=== PATIENT | male | born 1995 ===

== ENCOUNTER 2017-05-28 17:03 | Emergency (ER) | payer SELFPAY ==
[~2017-05-28] VITALS: Ht 167.6 cm; Wt 70.2 kg
[2017-05-28 17:03] VITALS: O2SAT 99; Ht 167.6 cm; Wt 70.2 kg
[2017-05-28] MEDS ORDERED: SODIUM CHLORIDE 0.9% 1000ML 1,000 ML IV STA (17:35)
--- NOTE | 2017-05-28 17:41 | EMERGENCY ROOM VISIT NOTE ---
History Report prepared by Renny: Caesar Dong Under the Supervision of: Dr. Jerome Pike M.D. First contact with patient: 17:06 Chief Complaint: SYNCOPE Stated Complaint: SYNCOPE History of Present Illness The patient is a 21 year old male who presents to the Emergency Room with complaints of a resolved syncopal episode that occurred prior to arrival. The patient state that he was at [facility] and was completing a questionnaire. He reports that he experienced a 2-3 seconds syncopal episode. The patient notes that he felt lightheaded, diaphoretic, and nauseous before hand. He denies seizure like activity, chest pain, shortness of breath, palpitations, vomiting, diarrhea, fevers, chills, recent travel, abdominal pain, headache, numbness weakness, urinating himself, biting his tongue, melena, hematochezia, and missing meals. The patient states that he typically runs 4-8 miles, and he has still been able to complete this. He reports that he has never had this before, and he immediately came to. The patient notes that his sister has CPVT and has a pacemaker defibrillator. He states that it is anxiety induced and genetic. The patient reports that he was genetically tested, and it was negative. Source of History: patient Onset: prior to arrival Position: other (global) Quality: other (syncope) Timing: resolved Associated Symptoms: + diaphoresis, + nausea, No fevers, No chills, No headache, No chest pain, No SOB, No vomiting, No abdominal pain, No melena, No hematochezia, No diarrhea, No weakness, No numbness Note: Associated symptoms: lightheadedness He denies seizure like activity, palpitations, recent travel, urinating himself , biting his tongue, and missing meals Review of Systems See HPI for pertinent positives & negatives. A total of 10 systems reviewed and were otherwise negative. Past Medical & Surgical Medical Problems: (1) No Known Active Medical Problems Old medical records were reviewed. Nurse's notes were reviewed and I agree with. 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 Current/Historical Medications Scheduled Terbinafine Hcl (Terbinafine Hcl), 1 TAB PO DAILY Allergies Coded Allergies: No Known Allergies (Unverified , 9/15/17) Physical Exam Vital Signs Date Time Temp Pulse Resp B/P (MAP) Pulse Ox O2 Delivery O2 Flow Rate FiO2 05/28/17 21:23 37.3 97 14 125/71 99 05/28/17 21:11 97 14 99 05/28/17 21:01 125/71 05/28/17 20:41 95 16 99 05/28/17 20:31 133/62 05/28/17 20:11 90 16 99 05/28/17 20:01 131/71 05/28/17 19:59 128/72 05/28/17 19:57 81 16 128/72 100 Room Air 05/28/17 19:41 93 16 98 05/28/17 19:18 97 16 120/70 100 Room Air 05/28/17 19:11 85 15 05/28/17 19:01 120/70 05/28/17 18:47 89 12 137/75 100 Room Air 05/28/17 18:41 88 17 05/28/17 18:31 137/75 05/28/17 18:11 80 15 05/28/17 18:08 90 12 120/69 100 Room Air 05/28/17 18:01 120/69 05/28/17 17:41 81 16 05/28/17 17:36 137/79 05/28/17 17:33 91 12 100 Room Air 05/28/17 17:12 91 05/28/17 17:08 137/80 05/28/17 17:03 99 Room Air 05/28/17 17:03 37.3 84 16 133/83 99 Room Air 05/28/17 17:03 37.3 84 16 133/83 99 Room Air 73 132/74 79 137/80 Physical Exam General: Well developed well nourished in no acute distress, breathing comfortably on room air. Normal speech. Young male. HEENT: Normal cephalic atraumatic. Pupils are equal round and reactive to light. Sclerae are anicteric. Extraocular movements are intact. Oropharynx is pink with moist mucous membranes. No swelling of the mouth lips or tongue. Neck: Supple with a midline trachea. No meningeal signs or stiffness, no JVD or bruits. No Stridor. Chest: Clear to auscultation bilaterally. No wheezes or rhonchi. No increased work of breathing. Heart: regular rate and rhythm. Abdomen: Soft nontender, nondistended without rebound guarding or rigidity. Extremities: No cyanosis clubbing or edema. No calf tenderness or assymetry Spine/Back. Non tender to palpation. No CVA tenderness Skin: Good turgor without rashes. Neurologic exam: Cranial nerves two through 12 are intact. Motor and sensation are intact and symmetrical throughout. Normal finger to nose, no tremor. Medical Decision & Procedures Laboratory Results 05/28/17 17:27 Red Blood Count 4.82, Mean Corpuscular Volume 86.1, Mean Corpuscular Hemoglobin 29.3, Mean Corpuscular Hemoglobin Concent 34.0, Mean Platelet Volume 9.3, Neutrophils (%) (Auto) 55.8, Lymphocytes (%) (Auto) 32.5, Monocytes (%) (Auto) 7.8, Eosinophils (%) (Auto) 3.5, Basophils (%) (Auto) 0.2, Neutrophils # (Auto) 4.78, Lymphocytes # (Auto) 2.79, Monocytes # (Auto) 0.67, Eosinophils # (Auto) 0.30, Basophils # (Auto) 0.02 05/28/17 17:27 Test 05/28/17 17:27 05/28/17 19:59 05/28/17 20:18 White Blood Count 8.58 K/uL (4.8-10.8) Red Blood Count 4.82 M/uL (4.7-6.1) Hemoglobin 14.1 g/dL (14.0-18.0) Hematocrit 41.5 % (42-52) Mean Corpuscular Volume 86.1 fL (80-100) Mean Corpuscular Hemoglobin 29.3 pg (25-34) Mean Corpuscular Hemoglobin Concent 34.0 g/dl (32-36) Platelet Count 302 K/uL (130-400) Mean Platelet Volume 9.3 fL (7.4-10.4) Neutrophils (%) (Auto) 55.8 % Lymphocytes (%) (Auto) 32.5 % Monocytes (%) (Auto) 7.8 % Eosinophils (%) (Auto) 3.5 % Basophils (%) (Auto) 0.2 % Neutrophils # (Auto) 4.78 K/uL (1.4-6.5) Lymphocytes # (Auto) 2.79 K/uL (1.2-3.4) Monocytes # (Auto) 0.67 K/uL (0.11-0.59) Eosinophils # (Auto) 0.30 K/uL (0-0.5) Basophils # (Auto) 0.02 K/uL (0-0.2) RDW Standard Deviation 40.7 fL (36.4-46.3) RDW Coefficient of Variation 12.9 % (11.5-14.5) Immature Granulocyte % (Auto) 0.2 % Immature Granulocyte # (Auto) 0.02 K/uL (0.00-0.02) Anion Gap 5.0 mmol/L (3-11) Est Creatinine Clear Calc Drug Dose 88.6 ml/min Estimated GFR () 100.3 Estimated GFR (Non- 86.5 BUN/Creatinine Ratio 18.6 (10-20) Calcium Level 9.1 mg/dl (8.5-10.1) Total Bilirubin 0.4 mg/dl (0.2-1) Direct Bilirubin 0.1 mg/dl (0-0.2) Aspartate Amino Transf (AST/SGOT) 19 U/L (15-37) Alanine Aminotransferase (ALT/SGPT) 18 U/L (12-78) Alkaline Phosphatase 71 U/L (45-117) Total Creatine Kinase 305 U/L (39-308) Creatine Kinase MB 1.1 ng/ml (0.5-3.6) Creatine Kinase MB Ratio 0.4 (0-3.0) Total Protein 7.8 gm/dl (6.4-8.2) Albumin 4.1 gm/dl (3.4-5.0) Lipase 216 U/L (73-393) Thyroid Stimulating Hormone (TSH) 0.941 uIu/ml (0.300-4.500) Bedside Troponin I 0.040 ng/ml (0-0.045) Troponin I < 0.015 ng/ml (0-0.045) Laboratory studies as stated above per my review. Medications Administered Medications (Trade) Dose Ordered Sig/Liss Route Start Time Stop Time Status Last Admin Dose Admin Sodium Chloride 1,000 ml @ 999 mls/hr Q1H1M STAT IV 05/28/17 17:35 9/15/17 18:35 DC 05/28/17 17:49 999 MLS/HR ECG Indication: syncope Rate (beats per minute): 74 Rhythm: normal sinus Findings: no acute ischemic change, no ectopy, other (Normal intervals, no prolonged QT, no brugada findings) Comparison ECG Date: no prior available ED Course 1706: Past medical records reviewed. The patient was evaluated in room A03 by the medical student under my supervision, and a complete history and physical examination were performed. 172: Past medical records reviewed. The patient was evaluated by me, and a complete history and physical examination were performed. 173: Ordered Sodium Chloride 1000 ml @ 999 mls/hr IV 1809: I reevaluated the patient. He is asymptomatic and feeling better. I discussed current exam findings. 1927: The patient had his blood redrawn. 2008: The patient's second troponin reading was marked as an error. It is being ran again. 2105: Upon reevaluation, the patient is resting comfortably. I discussed the results and treatment plan with him. He verbalized agreement of the treatment plan. The patient was discharged home. Medical Decision Differentials include, but are not limited to; vasovagal syncope, arrhythmia, pulmonary disease, cardiac disease, anemia, electrolyte metabolic abnormality. This patient comes in as described above. He was placed in room A3. He is here for treatment and evaluation of a syncopal episode. He was waiting to give plasma and felt nauseated and had symptoms and then passed out . there is no trauma. He feels fine at present. He's had no chest pain, shortness breath , or pleurisy. He has a normal neurologic exam and there is nothing to suggest a seizure. It sounds classic for a vasovagal episode .EKG was unremarkable there is nothing to suggest arrhythmia or prolonged QT or Brugada syndrome. There is nothing to suggest WPW. A second EKG done in the ER also was unremarkable and shows no change when compared to EKG #1. Blood work was unremarkable. His [id number] troponin was borderline at 0.05 however when I checked in the lab, it was normal. I rechecked in the lab 2 hours or so later was also negative. I rechecked it in the ER and it was also decrease in a 0.04. There is nothing to suggest this is a cardiac ischemic event. His sister does have an arrhythmia that's congenital however he's been tested and workup for this and that he says he does not have the genetic arrhythmia. He feels good and would like to go home. He mary rest and drink plenty of fluids. Return if recurrence of symptoms, chest pain, shortness of breath, fever or chills, any new problems or concerns. He is happy the plan and discharged to home. Impression Primary Impression: Vasovagal syncope Scribe Attestation The scribe's documentation has been prepared under my direction and personally reviewed by me in its entirety. I confirm that the note above accurately reflects all work, treatment, procedures, and medical decision making performed by me. Departure Information Dispostion Home / Self-Care Referrals [facility] Forms HOME CARE DOCUMENTATION FORM, IMPORTANT VISIT INFORMATION Patient Instructions My [facility] Additional Instructions Rest Drink plenty of fluids Return if: Worsening of symptoms, chest pain, shortness of breath, any new problems or concerns. Follow-up with your the student health clinic this coming week for recheck or return ER if symptoms worsen
[2017-05-28] MEDS ORDERED: TERB250T47 PO (17:46)
[2017-05-28 17:48] LABS: BASO % 0.2 %; BASO ABS # 0.02 K/uL (0-0.2); COMPLETE YES; EOS % 3.5 %; HEMATOCRIT 41.5 % (42-52); IG% 0.2 %; LYMPH % 32.5 %; LYMPH ABS # 2.79 K/uL (1.2-3.4); MEAN CELL VOLUME 86.1 fL (80-100); MEAN CORPUSCULAR HEMOGLOBIN 29.3 pg (25-34); MEAN PLATELET VOLUME 9.3 fL (7.4-10.4); MONO % 7.8 %; NEUT % 55.8 %; PLATELET COUNT 302 K/uL (130-400); RED BLOOD COUNT 4.82 M/uL (4.7-6.1); WHITE BLOOD COUNT 8.58 K/uL (4.8-10.8)
[2017-05-28 17:56] LABS: BUN/CREATININE RATIO 18.6 (10-20); CALCIUM 9.1 mg/dl (8.5-10.1); CREATININE 1.2 mg/dl (0.60-1.40); POTASSIUM 4.3 mmol/L (3.5-5.1)
[2017-05-28 18:07] LABS: THYROID STIMULATING HORMONE 0.941 uIu/ml (0.300-4.500)
[2017-05-28 19:05] LABS: CKMB/CK RATIO 0.4 (0-3.0)
[2017-05-28 21:23] VITALS: BP 125/71; PULSE 97; TEMP 37.3; O2SAT 99
== END 2017-05-28 21:26 | disposition home or self-care (01) ==
LOC: C.EDA 17:05
DX: R55 Syncope and collapse (principal); F41.9 Anxiety disorder, unspecified; Z79.899 Other long term (current) drug therapy